=== PATIENT | male | born 1975 | race Caucasian/White ===

== ENCOUNTER 2018-11-05 18:29 | Outpatient (REF) | payer BC, SELFPAY ==
[2018-11-07 13:21] LABS: Chlamydia Result Negative; GC Result Negative; Specimen Description URINE
== END 2018-11-05 18:49 ==
LOC: NCHCN 18:29
PROVIDERS: PCP Nurse Practitioner Family; Visit Provider Nurse Practitioner Family
DX: Z20.2 Contact with and (suspected) exposure to infections with a predominantly sexual mode of transmission (principal); Z11.3 Encounter for screening for infections with a predominantly sexual mode of transmission
CPT/HCPCS: 87491; 87591

== ENCOUNTER 2018-11-06 13:55 | Outpatient (REF) | payer BC, SELFPAY ==
[2018-11-06 13:01] LABS: HCT 49.9 % (40.0-50.0); HGB 16.2 g/dL (13.5-17.5); Mean Corp. HGB Concentration 32.5 g/dL (32.0-36.0); Mean Corpuscular Hemoglobin 29.1 pg (27.0-33.0); Mean Corpuscular Volume 89.7 fL (80-95); Mean Platelet Volume 10.6 fL (8.0-11.0); Platelet Count 309 x1000/uL (130-400); RBC 5.56 m/cumm (4.50-6.00); RBC Distribution Width 14.9 % (11.8-14.1); White Blood Cell Count 9.86 k/cumm (4.4-10.8)
[2018-11-07 10:49] LABS: Hepatitis C Ab w Rflx HCV PCR Negative (NEGAT)
[2018-11-07 10:50] LABS: HIV-1/2 Ag & Ab Screen Negative (NEGAT)
[2018-11-07 11:51] LABS: Syphilis Serology (RPR) Negative (Negative)
== END 2018-11-06 14:15 ==
LOC: LBN 13:55
PROVIDERS: PCP Nurse Practitioner Family; Visit Provider Nurse Practitioner Family
DX: Z20.2 Contact with and (suspected) exposure to infections with a predominantly sexual mode of transmission (principal); Z11.4 Encounter for screening for human immunodeficiency virus [HIV]; Z11.59 Encounter for screening for other viral diseases; Z13.0 Encounter for screening for diseases of the blood and blood-forming organs and certain disorders involving the immune mechanism
CPT/HCPCS: 85027; 86803; 87389; 86592

== ENCOUNTER 2018-12-10 18:56 | Outpatient (REF) | payer BC, SELFPAY ==
[2018-12-13 12:30] LABS: HSV Type 1 Ab, IgG Negative; HSV Type 2 Ab, IgG Positive
== END 2018-12-10 19:16 ==
LOC: NCHCN 18:56
PROVIDERS: PCP Nurse Practitioner Family; Visit Provider Nurse Practitioner Family
DX: Z20.2 Contact with and (suspected) exposure to infections with a predominantly sexual mode of transmission (principal); Z11.59 Encounter for screening for other viral diseases
CPT/HCPCS: 86695; 86696

== ENCOUNTER 2018-12-30 07:56 | Outpatient (CLI) | payer BC, SELFPAY ==
--- NOTE | 2018-12-30 09:49 | PFT_ITS ---
DECEMBER 30, 2018 REQUESTING PROVIDER: Vitaly Edwards SPIROMETRY: Shows no evidence of obstructive airways disease. No bronchodilator response. LUNG VOLUME: Shows no evidence of restriction. DIFFUSE CAPACITY: Normal. AIRWAYS RESISTANCE: Normal. IMPRESSION: Normal pulmonary function study. Clinical correlation is recommended.
[2018-12-30] MEDS: Albuterol HFA 18 GM 200 PUFF INH IH (13:58)
[2018-12-30] MEDS: Inhaler, Assist Device 1 EACH MC (13:58)
== END 2018-12-30 08:16 ==
PROVIDERS: PCP Nurse Practitioner Family; Visit Provider Nurse Practitioner Family
DX: R06.2 Wheezing (principal); R06.00 Dyspnea, unspecified; F17.210 Nicotine dependence, cigarettes, uncomplicated
CPT/HCPCS: 94060; 94150; 94726; 94729